=== PATIENT | male | born 1965 | race Caucasian/White ===

== ENCOUNTER 2025-01-21 10:43 | Outpatient (CLI) | payer BC | END 2025-01-21 10:44 | disposition home or self-care (01) | LOC: CSHMRI 10:43 | PROVIDERS: ATTEND Physician Assistant | DX: M75.101 Unspecified rotator cuff tear or rupture of right shoulder, not specified as traumatic (principal); S46.111A Strain of muscle, fascia and tendon of long head of biceps, right arm, initial encounter; M19.011 Primary osteoarthritis, right shoulder ==